=== PATIENT | female | born 1955 | race Caucasian/White ===

== ENCOUNTER → 2017-10-02 11:08 | Outpatient (CLI) | payer OTHER, SELFPAY | PROVIDERS: Family Provider Internal Medicine; PCP Internal Medicine; Visit Provider Internal Medicine | DX: N84.2 Polyp of vagina (principal) | CPT/HCPCS: 88175; G0145 ==

== ENCOUNTER → 2017-10-17 15:37 | Outpatient (CLI) | payer OTHER, SELFPAY ==
--- NOTE | 2017-10-17 11:00 | LES_PTH ---
PATIENT: ZACH TORREZ LOC: [facility] U#:[id number] AGE/SX: 69/F ROOM: RE10/17/[address]: Dr. Savage Klein MD : 1955 BED: DIS: SPEC #: [id number] RECD: 10/17/17 15:34 STATUS: ALYX HARVEY #: [id number] GNI: 10/17/17 11:[address]: Savage Klein DEPT: SURGICAL PATHOLOGY RECD BY: Marcy Valentino ENTERED: 10/18/17 10:02 SP TYPE: Lesion OTHR DR: Dr. Sara Taylor MD Tissues: Vagina, NOS Procedures: Special Stain Group I Surgery Specimen Level IV GMS Stain (control) HEADER OPERATION: Vaginal biopsy PRE-OP DIAGNOSIS: Polypoid lesion TISSUE SUBMITTED: Vaginal biopsy (right vaginal cuff) MICROSCOPIC DIAGNOSIS Polypoid lesion of vagina, biopsy: Focal acute inflammation. Mild chronic inflammation. No evidence of dysplasia. AM:nishant 10/21/17 COMMENT GMS stain with matched control is negative for fungal organisms. Clinical correlation is suggested. Case has been reviewed in consultation with Dr. Camacho who concurs with the above diagnosis. IDC:[id number] MICROSCOPIC DESCRIPTION Slides are reviewed. GROSS DESCRIPTION Received in fixative is one container labeled with the patient's name and designated vaginal biopsy. The specimen consists of a piece of joseph soft tissue measuring 0.5 x 0.5 x 0.2 cm. The specimen is totally submitted in one cassette. / SJ:nishant 10/18/17 TC:2 CPT: 18080, 61561
== END ==
PROVIDERS: Family Provider Internal Medicine; PCP Internal Medicine; Visit Provider Obstetrics & Gynecology
DX: Z12.4 Encounter for screening for malignant neoplasm of cervix (principal); N84.2 Polyp of vagina
CPT/HCPCS: 88175; 88305; 88312; G0145

== ENCOUNTER → 2018-07-23 11:04 | Outpatient (CLI) | payer OTHER, SELFPAY ==
--- NOTE | 2018-07-23 11:06 | BI_ITS ---
MAMMOGRAPHY - BILATERAL SCREENING REASON FOR EXAM: Female, 62 years old. Routine annual screening examination. PERTINENT HISTORY: Personal history of breast cancer. Prior right lumpectomy and radiation treatment. TECHNIQUE: Digital bilateral breast cari (3D mammographic acquisition) in the CC and MLO projections. 2-D mediolateral oblique (MLO) and craniocaudad (CC) views of both breasts were obtained. CAD: Full Field Digital Mammography with Computer Added Detection was performed. COMPARISON: Comparison is made with prior study dated July 22, 2017 and July 19, 2016. FINDINGS: Breast Composition: There are scattered areas of fibroglandular density. There are no dominant masses or suspicious calcifications. The patient is status post lumpectomy in the inferior medial aspect of the right breast with evidence of right axillary surgery. There has been no change. No other significant abnormalities are identified. There has been no significant change since the prior study. BI/SCREENING MAMM (CAD), BILAT IMPRESSION: Stable bilateral screening mammogram. Yearly follow-up mammogram recommended. (A) ASSESSMENT CATEGORY: BIRADS Category 2: Benign. A letter regarding these results will be sent to the patient by the facility within 30 days. Approximately 10% of breast cancers are not detected by mammography. A normal mammogram should not delay biopsy of a clinically suspicious abnormality. [id number] Electronically Signed: Alton Logan MD at 13:29 EST Tel [phone], Service support ,
== END ==
PROVIDERS: Family Provider Internal Medicine; PCP Internal Medicine; Referring Provider Internal Medicine Medical Oncology; Visit Provider Internal Medicine Medical Oncology
DX: Z12.31 Encounter for screening mammogram for malignant neoplasm of breast (principal); Z85.3 Personal history of malignant neoplasm of breast
CPT/HCPCS: 77063; 77067

== ENCOUNTER → 2018-08-13 11:28 | Outpatient (CLI) | payer OTHER, SELFPAY ==
[2018-05-22 11:33] VITALS: BMI 34.0
--- NOTE | 2018-08-13 11:39 | US_ITS ---
STUDY: RENAL ULTRASOUND - COMPLETE REASON FOR EXAM: Female, 62 years old. History of renal cancer, partial left nephrectomy. History of liver transplant. TECHNIQUE: Ultrasound evaluation of the kidneys was performed with real-time and static roldan-scale imaging. COMPARISON: CT abdomen and pelvis 12/04/2013 FINDINGS: RIGHT KIDNEY: 10.7 x 5.9 x 5.2 cm. Normal renal cortical thickness 1.1 cm, normal cortical echotexture. Multiple simple appearing cysts are present, the largest measuring 2.6 cm. There is no mass, calculus or hydronephrosis. LEFT KIDNEY: 10.2 x 4.3 cm. Cortical thinning, 0.9 cm. Normal cortical echotexture. Multiple simple appearing cysts, the largest measuring 2.6 cm. There is no visible mass, calculus or hydronephrosis. BLADDER: Bladder wall thickness up to 3.4 mm. Normal caliber and contour. US/Kidney and Bladder IMPRESSION: There is no sonographic evidence of partial refractory. Perhaps the patient had a previous ablation on the left. Correlate clinical history. Mild renal cortical thinning with normal cortical echotexture. Multiple bilateral simple appearing cysts. Electronically Signed: Dillon Garza MD at 15:31 EST Tel , Service support ,
--- NOTE | 2018-08-13 11:39 | US_ITS ---
STUDY: ABDOMINAL ULTRASOUND - RIGHT UPPER QUADRANT REASON FOR VISIT: Female, 62 years old. Elevated liver enzymes. Liver transplant in the 1980s. TECHNIQUE: Ultrasound evaluation of the right upper quadrant was performed with real-time and static dwyer-scale imaging. TECHNICAL QUALITY: Adequate. COMPARISON: CT chest 12/04/2013, CT abdomen and pelvis 12/04/2013. FINDINGS: Liver: The liver measures 16.9 cm. There is normal echogenicity of the liver. The bile ducts are within normal limits. There is hepatic color flow. The direction of portal flow is hepatopetal. There is no demonstrated mass lesion. Gallbladder: Cholecystectomy. Common Bile Duct (C.B.D.): The common bile duct measures 3.2 mm. Pancreas: Normal size of the head, body and tail of the pancreas. There is normal echogenicity of the pancreas. There is no demonstrated pancreatic mass or cyst. Right Kidney: 10.7 x 5.9 x 5.2 cm. Normal renal cortical thickness 1.1 cm, normal echotexture. Multiple benign appearing cysts, the largest measuring 2.6 cm. No mass, calculus or hydronephrosis. US/Liver IMPRESSION: Normal appearance of the liver, biliary tree, common bile duct. Electronically Signed: Dillon Garza MD at 15:28 EST Tel , Service support ,
== END ==
PROVIDERS: Family Provider Internal Medicine; PCP Internal Medicine; Referring Provider Internal Medicine; Visit Provider Internal Medicine
DX: C64.9 Malignant neoplasm of unspecified kidney, except renal pelvis (principal); M53.3 Sacrococcygeal disorders, not elsewhere classified; R94.5 Abnormal results of liver function studies; Z78.0 Asymptomatic menopausal state
CPT/HCPCS: 76705; 76770

== ENCOUNTER → 2018-08-18 09:06 | Outpatient (CLI) | payer OTHER, SELFPAY ==
--- NOTE | 2018-08-18 09:10 | NM_ITS ---
CLINICAL: 62-year-old female with reported history of renal cell and breast carcinoma. WHOLE BODY 99m Tc MDP RADIONUCLIDE BONE SCINTIGRAPHY COMPARISON: Previous whole body bone scintigraphy study report dated 04/07/2012 FINDINGS: Following the intravenous administration of 23.7 mCi of 99m Tc MDP, whole body bone images reveal: 1. Increased radiopharmaceutical concentration is identified in the right anterolateral sixth-eighth, left anterolateral sixth-seventh ribs, the fifth lumbar vertebra diffusely. 2. Enhanced uptake is visualized in the acromioclavicular, sternoclavicular and glenohumeral compartments of both shoulders, the bilateral knees, right-left midfoot. 3. The remaining skeletal structures are scintigraphically unremarkable with normal-appearing renal images and urinary bladder activity identified. NM/Bone Scan Whole Body IMPRESSION: 1. The increased radiopharmaceutical concentration identified in the bilateral anterolateral ribs and fifth lumbar vertebra is most consistent with trauma-fracture. Plain film radiography correlation may be of benefit for further evaluation. 2. Degenerative arthritis appears expressed in the bilateral shoulders, right and left knees, mid foot bilaterally. 3. Overall compared to the previous whole body bone scintigraphy report dated 04/07/2012, there is no significant interval change. No current scintigraphic evidence of diffuse axial skeletal metastatic disease is defined on the present examination. Electronically Signed: Dillon Rodrigues DO at 21:58 EST Tel , Service support ,
== END ==
PROVIDERS: Family Provider Internal Medicine; PCP Internal Medicine; Referring Provider Internal Medicine; Visit Provider Internal Medicine
DX: M53.3 Sacrococcygeal disorders, not elsewhere classified (principal); C64.9 Malignant neoplasm of unspecified kidney, except renal pelvis; R94.5 Abnormal results of liver function studies; Z78.0 Asymptomatic menopausal state
CPT/HCPCS: 78306

== ENCOUNTER → 2018-09-22 10:42 | Outpatient (CLI) | payer OTHER, SELFPAY ==
[2018-05-22 11:33] VITALS: BMI 34.0
--- NOTE | 2018-09-22 10:46 | RAD_ITS ---
STUDY: X-RAY - BILATERAL RIBS REASON FOR EXAM: Female, 63 years old. Abnormal radionucleotide bone scan. TECHNIQUE: 3 view(s) of the ribs. COMPARISON: Bone scan, August 18, 2018. FINDINGS: Normal visualized ribs without a demonstrated fracture. There are multiple calcified granulomata within the lungs most marked on the left. The heart appears borderline enlarged. There is tortuosity and atherosclerotic changes of the aorta. RAD/Ribs Bilat 3V No CXR IMPRESSION: Normal x-ray examination of the bilateral ribs. Electronically Signed: Nick Short DO at 18:27 EST Tel [phone], Service support ,
--- NOTE | 2018-09-22 10:47 | RAD_ITS ---
STUDY: X-RAY - LUMBAR SPINE REASON FOR EXAM: Female, 63 years old. Lower back pain. TECHNIQUE: 5 view(s) of the lumbar spine were obtained. COMPARISON: Whole-body bone scan, August 18, 2018. CT of the abdomen and pelvis, December 04, 2013. FINDINGS: Normal lumbar lordosis. There is no substantial scoliosis. There is marked anterolisthesis of L4 on L5 of 1.5 cm. The alignment is otherwise grossly preserved. There is multilevel endplate spondylosis of the lumbar vertebrae. There is multi-level degenerative disc disease with multi-level disc space narrowing. There is mildly increased density of the T12 vertebra. There is no evidence of acute fracture or loss of vertebral axial height. There are pars defects at the L4-5 level. There is atherosclerotic calcification of the abdominal aorta without a demonstrated aneurysm. There are multiple surgical clips in the right upper quadrant. RAD/L/S Spine Min 4 Views IMPRESSION: Degenerative changes about the lumbar spine with spondylolisthesis at L4-5. These findings appear unchanged from the CT of the abdomen and pelvis dated November 24, 2013. There is no evidence of sclerosis or other abnormalities correlate with the increased uptake seen on the bone scan. Electronically Signed: Nick Short DO at 18:32 EST Tel [phone], Service support ,
== END ==
PROVIDERS: Family Provider Internal Medicine; PCP Internal Medicine; Referring Provider Internal Medicine; Visit Provider Internal Medicine
DX: R94.8 Abnormal results of function studies of other organs and systems (principal)
CPT/HCPCS: 71110; 72110

== ENCOUNTER 2019-05-13 14:00 | Outpatient (RCR) | payer OTHER, SELFPAY ==
[2018-12-04 10:16] VITALS: BMI 34.9
--- NOTE | 2019-04-15 11:01 | HP.PTEVAL ---
Patient's Visit Information ZACH TORREZ is a 63 year old F referred to Physical Therapy by Sara Taylor MD with a diagnosis of Coccyx Pain. Date of Evaluation: 04/15/19 Physical Therapist: Conchis Stinson DPT - Visit Plan Frequency: 2x /Week Duration: 4 Weeks Plan: Focus on LE & core s/s. 04/15/19 HEP: postural education, bridge, iso abs, prone heel squeeze and figure 4 strtetching - Subjective Findings: About a year and half her tailbone has been bothering her. She has pain sitting or when she goes to stand up after sitting for long periods of time. When she puts pressure on it. Years ago she fell on her tailbone- it bothered her a long time. Best: 0/10. When she stands up the pain goes away quickly. Describes the pain as dull and achy. Worst: 4/10. The pain builds up over time. Unsure if the chair makes a difference of not- sat on a hard bench in sabianism it really bothers her. Pain in the tailbone- does report sciatica. Does have N/T in the left foot that comes and goes. Has had sciatica for a long time- she manage- sees a chiropractor- intermittently. Sciatica is on the left side. She has learned activity modifications to limit the pain- has not had a flare up in a year or two. Does not have a current flare up. Sleep: not disturbed- side sleeper- Right side. Normal day for her housework- but does take breaks- in a days time she sits for about 2 hours. Does sit in a chair to read- reclyner- is not painfree in the chair- and does find herself moving around. Did not have x-rays taken- but had a bone scan done PMHx: no change since PMHx/Meds were updated in chart. - Objective Posture: FH, RS - was able to correct with VC's but unable to maintain. Gait: no deviation noted, good arm swing & trunk rotation. HR/TR: WFL with UE A. SLS: immedite LOB - no increase in pain- does weight shift equally. ROM: Lumbar WFL - except L rot. diminshed by 25% LE WFL B. Strength: Ankle 5/5 Knee 4+/5 Hip 4-/5 throughout Core fair-. Flexibility: HS: no restriction, Quad: no restriction. Sensation: WFL. Palpation: tender along middle of the sacrum and the right border significant pain- mild soreness with full LE palpation. Able to obtain all testing positions without incidence or pain - Goals Goal 1:: Pt. will be I w/ HEP & progression Goal Time Frame: 4-6 Weeks Goal 2:: Pt. will be able to tolerate prolonged seated position with pain level of 0/10 Goal Time Frame: 4-6 Weeks Goal 3:: Pt. will maintain proper posture throughout tx session to demo increased core s/s. Goal Time Frame: 4-6 Weeks - Rehabilitation Potential Physical Therapy Diagnosis: Pt. presents w/ hypomobility, decrease muscular strength, impaired core msculature stability, and pain which leads to impaired ability to perform ADLs Rehabilitation Potential: Good - Anticipated Interventions Patient/Client Instruction: Educate patient on: Condition, Plan of Care For the Purpose of:: To decrease pain Therapeutic Exercise to Include: Strength training, Endurance training, Balance training, Body mechanics, Postural training, Flexibilty training, Passive ROM, Active ROM, Dynamic Lumbar Stabilization, Scapular Strength/Stabilization For the Purpose of:: To improve muscle performance and motor function Cryotherapy (ice pack, ice massage): Yes Thermo therapy (hot pack): Yes For the Purpose of:: To decrease pain Thank you for the opportunity to evaluate your patient. For Medicare and Medicare HMO plans, please review the plan of care and approve it. It will need to be FAXED BACK to us at [phone] for Medicare purposes. For Medicare only, by signing this I certify the plan of care. Please let me know if there are questions or concerns regarding this plan of care. Physician Signature: Date:
--- NOTE | 2019-05-13 14:56 | HP.PTDCSUM ---
HP - PT D/C Summary It has been my pleasure to treat ZACH TORREZ under orders from Sara Taylor MD, for the diagnosis of Coccyx Pain for a total of 6 visit(s). Discharge Date: Please see the following information for a summary of their discharge status. - Subjective Subjective: Pt. is not doing as well as she wished, but it is better. Can sit longer & only really has minor pain when stand up from sitting down, depending on how long she is seated. - Pain tail bone Pain Intensity (Out of 10): 0 - Overall Improvement % Improvement: 75 - Objective Objective/Function: Posture: FH, RS - was able to correct with VC's but unable to maintain. Gait: no deviation noted, good arm swing & trunk rotation. HR/TR: WFL with UE A. SLS: immedite LOB - no increase in pain- does weight shift equally. ROM: Lumbar WFL - no pain/restrictions w/ B rot. Strength: Ankle 5/5 Knee 5/5 Hip 5/5 throughout Core fair. Flexibility: HS: no restriction, Quad: no restriction. Sensation: WFL. Able to obtain all testing positions without incidence or pain - Goals Goal 1:: Pt. will be I w/ HEP & progression Goal Progress: Goal Met Goal 2:: Pt. will be able to tolerate prolonged seated position with pain level of 0/10 Goal Progress: Progressing Goal 3:: Pt. will maintain proper posture throughout tx session to demo increased core s/s. Goal Progress: Progressing - Plan Plan: 05/13/19 Pt. D/C - instructed to cont. w/ HEP on her own and contact if any questions/concerns. - D/C Information If there are questions or concerns regarding this patient's physical therapy, please feel free to call me at [phone]. Thank you for the referral of this patient. Sincerely, Conchis Stinson DPT
== END 2019-05-13 17:11 | disposition home or self-care (01) ==
LOC: PT 14:00
PROVIDERS: Family Provider Internal Medicine; PCP Internal Medicine; Referring Provider Internal Medicine; Visit Provider Internal Medicine
DX: M53.3 Sacrococcygeal disorders, not elsewhere classified (principal)
CPT/HCPCS: 97110; 97161; 97164

== ENCOUNTER → 2019-06-18 13:07 | Outpatient (CLI) | payer OTHER, SELFPAY ==
[2019-06-04 13:30] VITALS: BMI 34.9
--- NOTE | 2019-06-18 13:08 | CT_ITS ---
STUDY: CT CHEST WITH CONTRAST REASON FOR EXAM: Female, 63 years old. History of kidney and breast cancer. Partial left nephrectomy. Appendectomy. Liver transplant. RADIATION DOSAGE (If Supplied By Facility): CTDIvol = ( 20.13 ) mGy, DLP = ( 1743.87 ) mGycm TECHNIQUE: Transaxial imaging was performed following intravenous administration of IV Isovue 370 100. Multiplanar coronal and sagittal images were reformatted. Individualized dose optimization techniques were used for this CT. COMPARISON: Chest, August 15, 2016. FINDINGS: The lungs are well-expanded. There is a 4 mm calcified granuloma left lung apex. There is a 5 mm calcified granuloma along the anterolateral pleural surface of the left upper lobe. There is also subpleural calcified granuloma in the left lower lobe. No other masses or infiltrates are seen. There is no demonstrated pleural abnormality. Normal heart and pericardium. There are calcifications of the coronary arteries. Normal mediastinum. Normal hilar regions. Normal enhanced pulmonary arteries. There is an ascending thoracic aortic aneurysm measuring 4.7 x 4.5 cm at the level of the right pulmonary artery (image 48, series 1002). This tapers into the arch. There is normal degenerative changes without dissection. There are degenerative changes of the thoracic spine with a mild dextroscoliosis of the upper thoracic spine. The liver appears nodular and heterogenous in enhancement. CT/Chest WITH Contrast IMPRESSION: 1. Old granulomatous disease without acute cardiopulmonary findings. 2. Descending thoracic aortic aneurysm without dissection. 3. Degenerative changes on the thoracic spine with mild scoliosis. 4. Heterogenous lobulated liver disease refer to the CT of the abdomen and pelvis performed the same day for further discussion of abdominal findings. Electronically Signed: Nick Short DO at 23:13 EDT Tel [phone], Service support ,
--- NOTE | 2019-06-18 13:08 | CT_ITS ---
STUDY: CT ABDOMEN AND PELVIS WITH CONTRAST REASON FOR EXAM: Female, 63 years old. Renal and breast cancer. History of partial left nephrectomy and appendectomy. History of liver transplant. RADIATION DOSAGE (If Supplied By Facility): CTDIvol = ( 20.13 ) mGy, DLP = ( 1743.87 ) mGycm TECHNIQUE: Transaxial images were obtained from the dome of the diaphragm to the symphysis pubis with oral contrast. IV Isovue 370 100 was administered. Sagittal and coronal images were reconstructed. Individualized dose optimization techniques were used for this CT. COMPARISON: CT of the chest, May 302018. Abdominal ultrasound, August 13, 2018. FINDINGS: Calcified granulomata are seen in the left lung base. Lungs are otherwise clear. The visualized portions of the heart are within normal limits. The liver is heterogenous and lobulated in contour. There is no focal mass. There are surgical clips of bowel around the liver consistent with history of liver transplant. The gallbladder is absent. There is air in the central intrahepatic and extrahepatic bile ducts consistent with sphincterotomy. The spleen is somewhat lobulated in contour with multiple calcified granulomata. Normal pancreas. Normal bilateral adrenal glands. The right kidney is malrotated. There are multiple cortical cysts. There is 6 density of stranding of the perinephric fat and thickening of perirenal fascial planes which extends downward towards the pelvis. No visualized renal calculi or enhancing mass. Normal right ureter. The left kidney demonstrates normal thickness and enhancement. There are multiple renal cysts without cortical mass. No hydronephrosis. Normal left ureter. Normal visualized stomach. Probable duodenal diverticuli adjacent to the pancreatic head. The remainder of the small bowel appears grossly normal. Air and feces is seen throughout a nondistended colon. The appendix is not visualized. There is diffuse atherosclerotic calcification of the abdominal aorta, without a demonstrated aneurysm. Normal inferior vena cava. Normal retroperitoneum. Normal urinary bladder. Normal vaginal cuff. There is no pelvic lymphadenopathy or mass. No free air or free fluid is seen within the peritoneal cavity. There is slight irregularity of the left lateral wall with mild herniation of the hepatic flexure secondary to previous renal surgery. Abdominal wall appears otherwise unremarkable. There are diffuse degenerative changes of the visualized lumbar spine. There is anterolisthesis of L4 and L5 with bilateral pars defects. CT/Abdomen/Pelvis WITH Contrast IMPRESSION: 1. Multiple bilateral renal cysts. There is no evidence of enhancing mass. No evidence of right renal cancer recurrence. There is no evidence of metastatic disease. 2. Extensive stranding of the perinephric fat about the right kidney without abnormal enhancement to suggest pyelonephritis. 3. Lobulated liver consistent with transplant liver. There is no acute abnormality. 4. Old granulomatous disease. 5. Mild herniation of the left lateral abdominal wall secondary to prior renal surgery. 6. Status post hysterectomy. 7. Degenerative changes of the lumbar spine with anterolisthesis at L4-5. Electronically Signed: Nick Short DO at 23:25 EDT Tel [phone], Service support ,
[2019-06-18 13:41] LABS: CREATININE FINGERSTICK 1.2 mg/dL (0.55-1.02)
== END ==
PROVIDERS: Family Provider Internal Medicine; PCP Internal Medicine; Referring Provider Internal Medicine Medical Oncology; Visit Provider Internal Medicine Medical Oncology
DX: Z85.3 Personal history of malignant neoplasm of breast (principal); Z85.528 Personal history of other malignant neoplasm of kidney
CPT/HCPCS: 71260; 74177; Q9967

== ENCOUNTER → 2019-10-01 14:31 | Outpatient (CLI) | payer MEDICARE, BC, SELFPAY ==
[2019-06-25 14:28] VITALS: BMI 36.0
--- NOTE | 2019-10-01 14:35 | BD_ITS ---
STUDY: DUAL ENERGY X-RAY ABSORPTIOMETRY / DXA REASON FOR EXAM: Female, 64 years old. Age of lolita- 37. Pat is 184# and 61 and quot; a loss of 1.5 and quot; per pat. Past use of tamoxifen. Takes prednisone now. Has a diuretic in her Bipeds. Takes Keppra for about 5 yrs now. Takes a multi-vit and exercises off and on. Hx of fx''s to both knees and both wrists. Hx of surgery to both wrists. Hx of breast CA, Liver transplant at age 30. Has taken cortisone as a child and currently takes Prednisone. Has a hx of ulcerative colitis. TECHNIQUE: Bone Mineral Density (BMD) measurements of lumbar spine and bilateral hips were obtained. COMPARISON: Comparison is made with prior study dated August 08, 2011. FINDINGS: Lumbar Spine (L1-L4): g/cm2 (1.126) / T-score (-0.4) / Z-score (1.1) Findings are suggestive of normal bone density with a low fracture risk. Left Femur Total: g/cm2 (0.849) / T-score (-1.3) / Z-score (-0.1) Left Femoral Neck: g/cm2 (0.774) / T-score (-1.9) / Z-score (-0.4) Right Femur Total: g/cm2 (0.876) / T-score (-1.0) / Z-score (0.1) Right Femoral Neck: g/cm2 (0.839) / T-score (-1.4) / Z-score (0.0) The T-Scores on the most recent prior examination were: Lumbar Spine (L1-L4): There has been worsening of bone density since the previous examination. Left Femur Total: which represents a worsening of 3.6%. Right Femur Total: which represents a worsening of 1.9%. BD/Dexa Bone Density Study IMPRESSION: The patient is considered osteopenic as outlined below according to World Crescenc[employer] Organization (WHO) criteria with a moderate fracture risk. There has been worsening of bone density since the previous examination. Reference Information: The T-score is the number of standard deviations above or below the standard which is normal for young adults at their peak bone mineral density. The World Health Organization (WHO) interprets the T-scores as follows: Above -1 Normal bone density Between -1 and -2.5 Osteopenia Equal to / or below -2.5 Osteoporosis As a practical clinical guideline, osteopenia may be graded as follows: Mild -1 through -1.5 Moderate -1.6 through -2.0 Severe -2.1 through -2.4 The Z-score is the number of standard deviations above or below age-matched controls. A Z-score of less than -1.5 would be considered abnormal. References: 1. NIH Osteoporosis and Related Bone Diseases http://www.osteo.org 2. International Society for Clinical Densitometry http://www.iscd.org 3. National Osteoporosis Foundation http://www.nof.org Electronically Signed: Alton Logan, at 9:12 EST , Service support ,
--- NOTE | 2019-10-01 14:35 | BI_ITS ---
MAMMOGRAPHY - BILATERAL SCREENING REASON FOR EXAM: Female, 64 years old. Routine annual screening examination. PERTINENT HISTORY: Personal history of breast cancer. Prior right lumpectomy and radiation. TECHNIQUE: Digital bilateral breast maximilian (3D mammographic acquisition) in the CC and MLO projections. 2-D mediolateral oblique (MLO) and craniocaudad (CC) views of both breasts were obtained. CAD: Full Field Digital Mammography with Computer Added Detection was performed. COMPARISON: Comparison is made with prior examination dated July 23, 2018 and July 22, 2017. FINDINGS: Breast Composition: There are scattered areas of fibroglandular density. There are no dominant masses or suspicious calcifications. Once again, surgical clips are seen in the right axillary region. There is evidence of postsurgical changes in the inferior medial aspect of the right breast in keeping with prior right lumpectomy. No other significant abnormalities are identified. There has been no significant change since the prior study. BI/SCREEN MAMM (CAD) W/MAXIMILIAN BILAT IMPRESSION: Stable bilateral screening mammogram. Yearly follow-up mammogram recommended. (A) ASSESSMENT CATEGORY: BIRADS Category 2: Benign. A letter regarding these results will be sent to the patient by the facility within 30 days. Approximately 10% of breast cancers are not detected by mammography. A normal mammogram should not delay biopsy of a clinically suspicious abnormality. [id number] Electronically Signed: Alton Logan, at 16:01 EST , Service support ,
== END ==
PROVIDERS: Family Provider Internal Medicine; PCP Internal Medicine; Referring Provider Internal Medicine; Visit Provider Internal Medicine
DX: Z78.0 Asymptomatic menopausal state (principal); Z12.31 Encounter for screening mammogram for malignant neoplasm of breast
CPT/HCPCS: 77063; 77067; 77080

== ENCOUNTER → 2021-05-10 11:16 | Outpatient (CLI) | payer MEDICARE, BC, SELFPAY ==
[2019-06-25 14:28] VITALS: BMI 36.0
== END ==
PROVIDERS: PCP Internal Medicine; Visit Provider Internal Medicine
DX: G47.33 Obstructive sleep apnea (adult) (pediatric) (principal)
CPT/HCPCS: 95806

== ENCOUNTER → 2021-08-17 07:51 | Outpatient (CLI) | payer MEDICARE, BC, SELFPAY ==
--- NOTE | 2021-08-17 07:57 | US_ITS ---
STUDY: ABDOMINAL ULTRASOUND REASON FOR EXAM: Female, 65 years old. FLANK PAIN -- HX LIVER TRANSPLANT, ANGEL, PARTIAL LT NEPHRECTOMY TECHNIQUE: Transabdominal ultrasound was performed with real-time and static dwyer scale imaging. TECHNICAL QUALITY: Adequate. COMPARISON: None. FINDINGS: Liver: The liver measures 14.4 cm. There is normal echogenicity of the liver. The bile ducts are within normal limits. There is hepatic color flow. The direction of portal flow is hepatopetal. There is no demonstrated mass lesion. Portal vein measurement: Gallbladder: The patient is status post cholecystectomy.. Common Bile Duct (C.B.D.): The common bile duct measures 4 mm. Pancreas: Normal size of the head, body and tail of the pancreas. There is normal echogenicity of the pancreas. There is no demonstrated pancreatic mass or cyst. Spleen: Normal size of the spleen. The spleen measures 8.5 cm. Right Kidney: Normal size of the right kidney. The right kidney measures 13.2 cm. Normal renal cortex. The right cortex measures 11.7 cm. 2 cm cyst lower pole right kidney. There is no right hydronephrosis. Left Kidney: Normal size of the left kidney. The left kidney measures 12.7 cm. Normal renal cortex. The left cortex measures 0.9 cm. 2.5 cm cyst in the midsection of left kidney. There is no left hydronephrosis. Aorta: No abdominal aortic aneurysm. I.V.C.: The IVC is patent. There is no ascites. US/Abdomen Complete IMPRESSION: Normal abdominal ultrasound examination. Electronically Signed: Dillon Sykes MD at 10:24 EST Tel , Service support ,
== END ==
PROVIDERS: PCP Internal Medicine; Referring Provider Internal Medicine; Visit Provider Internal Medicine
DX: R10.9 Unspecified abdominal pain (principal); Z94.4 Liver transplant status; Z90.5 Acquired absence of kidney; K51.90 Ulcerative colitis, unspecified, without complications; C64.9 Malignant neoplasm of unspecified kidney, except renal pelvis; D84.9 Immunodeficiency, unspecified
CPT/HCPCS: 76700

== ENCOUNTER 2021-10-13 14:08 | Outpatient (CLI) | payer MEDICARE, BC, SELFPAY ==
[2021-10-13 14:29] VITALS: BP 155/77; PULSE 81; RESP 16; TEMP 36.2; O2SAT 98; BMI 34.7
[2021-10-13] MEDS: 0.9% NaCl IVPB Med Flush (250 mL) 15 ML IV (14:30)
[2021-10-13] MEDS: 0.9% NaCl Peripheral Flush Adult/Peds IV (14:38)
[2021-10-13 15:08] VITALS: BP 138/77; PULSE 68; RESP 16; TEMP 36.3; O2SAT 96
== END 2021-10-13 23:59 | disposition home or self-care (01) ==
LOC: MEDOUTP 14:11
PROVIDERS: PCP Internal Medicine; Referring Provider Internal Medicine; Visit Provider Internal Medicine
DX: D50.9 Iron deficiency anemia, unspecified (principal)
CPT/HCPCS: 96365; J1756; J7050; A4216

== ENCOUNTER 2021-10-20 13:00 | Outpatient (CLI) | payer MEDICARE, BC, SELFPAY ==
[2021-10-20 13:05] VITALS: BP 130/74; PULSE 71; RESP 16; TEMP 36.1; O2SAT 99
[2021-10-20] MEDS: 0.9% NaCl IVPB Med Flush (250 mL) 15 ML IV (13:07)
[2021-10-20] MEDS: 0.9% NaCl Peripheral Flush Adult/Peds IV (13:10)
[2021-10-20 13:50] VITALS: BP 129/72; PULSE 64; RESP 16
== END 2021-10-20 23:59 | disposition home or self-care (01) ==
LOC: MEDOUTP 13:00
PROVIDERS: PCP Internal Medicine; Referring Provider Internal Medicine; Visit Provider Internal Medicine
DX: D50.9 Iron deficiency anemia, unspecified (principal)
CPT/HCPCS: 96365; J1756; J7050; A4216

== ENCOUNTER 2021-10-25 14:03 | Outpatient (CLI) | payer MEDICARE, BC, SELFPAY ==
[2021-10-25] MEDS: 0.9% NaCl Peripheral Flush Adult/Peds IV (14:56)
[2021-10-25] MEDS: 0.9% NaCl IVPB Med Flush (250 mL) 15 ML IV (14:56)
[2021-10-25 14:57] VITALS: BP 136/76; PULSE 71; RESP 16; TEMP 36; O2SAT 95
== END 2021-10-25 23:59 | disposition home or self-care (01) ==
LOC: MEDOUTP 14:03
PROVIDERS: PCP Internal Medicine; Referring Provider Internal Medicine; Visit Provider Internal Medicine
DX: D50.9 Iron deficiency anemia, unspecified (principal)
CPT/HCPCS: 96365; J1756; J7050; A4216

== ENCOUNTER 2021-11-07 14:01 | Outpatient (CLI) | payer MEDICARE, BC, SELFPAY ==
[2021-11-07] MEDS: 0.9% NaCl Peripheral Flush Adult/Peds IV (14:19)
[2021-11-07] MEDS: 0.9% NaCl IVPB Med Flush (250 mL) 15 ML IV (14:19)
[2021-11-07 14:20] VITALS: BP 136/69; PULSE 76; RESP 16; TEMP 35.8; O2SAT 99; BMI 34.7
[2021-11-07 14:45] VITALS: BP 134/66; PULSE 71; RESP 12; TEMP 35.5; O2SAT 98
== END 2021-11-07 23:59 | disposition home or self-care (01) ==
LOC: MEDOUTP 14:01
PROVIDERS: PCP Internal Medicine; Referring Provider Internal Medicine; Visit Provider Internal Medicine
DX: D50.9 Iron deficiency anemia, unspecified (principal)
CPT/HCPCS: 96374; J1756; J7050; A4216

== ENCOUNTER 2021-11-10 14:04 | Outpatient (CLI) | payer MEDICARE, BC, SELFPAY ==
[2021-11-10] MEDS: 0.9% NaCl Peripheral Flush Adult/Peds IV (14:17)
[2021-11-10] MEDS: 0.9% NaCl IVPB Med Flush (250 mL) 15 ML IV (14:24)
[2021-11-10 14:27] VITALS: BP 133/71; PULSE 73; RESP 16; TEMP 36.3; O2SAT 97; BMI 34.7
[2021-11-10 14:39] LABS: Absolute Lymphocyte Count 2.34 X10^3/uL (0.83-4.51); Absolute Neutrophil Count 7.6 X10^3/uL (2.0-7.7); Basophil# 0.03 X10^3/uL; Basophil% 0.3 % (0-1); Eosinophil# 0.45 X10^3/uL; Eosinophils% 3.8 % (0-5); Hemoglobin 10.5 g/dL (12.0-15.0); Lymphocyte # 2.34 X10^3/ul (0.83-4.51); Lymphocyte % 19.9 % (19-41); Mean Corp Hgb Conc 30.9 g/dL (32-36); Mean Corpuscular Hgb 27.1 pg (27.0-32.0); Mean Corpuscular Volume 87.9 fL (81-99); Mean Platelet Vol. 9.3 fl (6.2-12.0); Monocyte# 1.24 X10^3/uL; Monocyte% 10.6 % (0-10); NRBC Flagged by Analyzer 0 % (0-5); Neutrophil # 7.63 X10^3/uL (2.7-7.7); Neutrophil % 65.1 % (47-70); Platelet Count 347 K/mm3 (150-450); RBC Distribution Width CV 19.7 % (11.6-14.6); RBC Distribution Width SD 62.5 fl (35.1-43.9); Red Blood Count 3.87 M/mm3 (4.2-5.4); White Blood Count 11.7 K/mm3 (4.4-11.0)
[2021-11-10 14:50] VITALS: BP 130/73; PULSE 67; RESP 16; TEMP 36.3; O2SAT 98
[2021-11-10 15:04] LABS: Ferritin 125 ng/mL (8-252); Iron 48 ug/dL (50-170); Iron Binding Capacity,Total 307 ug/dL (250-450)
== END 2021-11-10 23:59 | disposition home or self-care (01) ==
LOC: MEDOUTP 14:04
PROVIDERS: PCP Internal Medicine; Referring Provider Internal Medicine; Visit Provider Internal Medicine
DX: D50.9 Iron deficiency anemia, unspecified (principal)
CPT/HCPCS: 96365; 82728; 83540; 83550; 85025; J1756; J7050; A4216

== ENCOUNTER → 2021-12-29 | Outpatient (CLI) | payer MEDICARE, BC, SELFPAY ==
--- NOTE | 2021-12-29 09:42 | BI_ITS ---
MAMMOGRAPHY - BILATERAL DIAGNOSTIC REASON FOR EXAM: Female, 66 years old. Soft tissue growth on the tip of the left nipple. PERTINENT HISTORY: Personal history of breast cancer. Prior right lumpectomy with radiation treatment. TECHNIQUE: Digital bilateral breast cari (3D mammographic acquisition) in the CC and MLO projections. 2-D mediolateral oblique (MLO) and craniocaudad (CC) views of both breasts were obtained. CAD: Full Field Digital Mammography with Computer Added Detection was performed. COMPARISON: Comparison is made with prior study of 10/01/2019 and 07/23/2013. FINDINGS: Breast Composition: There are scattered areas of fibroglandular density. There are no dominant masses or suspicious calcifications. The patient is status post lumpectomy on the inferior medial aspect of the right breast. Postoperative scarring is seen at that site. Surgical clips are also seen in the right axillary region. No other significant abnormalities are identified. There has been no significant change since the prior study. BI/DIAG MAMM W/CAD, BILAT IMPRESSION: Stable bilateral diagnostic mammogram. With the patient''s history of a soft tissue growth at the tip of the left nipple, correlation with ultrasound of the left retroareolar region is recommended. ASSESSMENT CATEGORY: BIRADS Category 0: Incomplete. Need additional imaging evaluation. A letter regarding these results will be sent to the patient by the facility within 30 days. Approximately 10% of breast cancers are not detected by mammography. A normal mammogram should not delay biopsy of a clinically suspicious abnormality. Electronically Signed: Alton Logan MD at 10:46 EDT ,
--- NOTE | 2021-12-29 09:42 | US_ITS ---
STUDY: ULTRASOUND BREAST - LEFT REASON FOR EXAM: Female, 66 years old. Vascular nodule in the region of the left nipple. TECHNIQUE: Axial and longitudinal images of the LEFT breast were performed with a high resolution ultrasound transducer. # OF IMAGES: 14 COMPARISON: Comparison is made with prior mammogram done earlier in the day as well as prior sonogram of the left breast dated 07/19/2016. FINDINGS: LEFT Breast: The periareolar region as well as retroareolar region were examined with ultrasound. No abnormality is seen. US/Breast Limited Unilateral IMPRESSION: Unremarkable examination. ASSESSMENT CATEGORY: BIRADS Category 1: Negative. A letter regarding these results will be sent to the patient by the facility within 30 days. Electronically Signed: Alton Logan MD at 12:23 EDT ,
== END | disposition home or self-care (01) ==
LOC: OPBI 09:41
PROVIDERS: PCP Internal Medicine; Visit Provider Internal Medicine Medical Oncology
DX: R92.2 Inconclusive mammogram (principal); N63.25 Unspecified lump in the left breast, overlapping quadrants; Z85.3 Personal history of malignant neoplasm of breast
CPT/HCPCS: 76642; 77062; 77066; G0279